=== PATIENT | male | born 1940 | race Caucasian/White ===

== ENCOUNTER → 2020-04-14 11:14 | Outpatient (CLI) | payer MEDICARE, MEDICAID, SELFPAY ==
[2020-04-15 15:39] LABS: COVID19 Sendout Not Detected (Not Detect)
== END ==
PROVIDERS: Visit Provider Physician Assistant
DX: Z01.812 Encounter for preprocedural laboratory examination (principal)
CPT/HCPCS: 87635

== ENCOUNTER → 2020-04-17 12:42 | Outpatient (CLI) | payer MEDICARE, MEDICAID, SELFPAY ==
--- NOTE | 2020-04-23 09:15 | PM.PFT.1 ---
Pulmonary Function Test Referral & Results Date Patient Seen: 04/17/20 Requesting provider: Lennox Lyons Indication: Asthma Results: The spirometry demonstrates an FVC of 1.84 L which is 60% of predicted. The FEV1 was measured at 1.20 L which is 55% of predicted. The FEV1/FVC ratio was 65 which is 90% of predicted. No bronchodilator was administered No lung volumes were performed The diffusing capacity was measured at 13.63 which is 56% of predicted. No hemoglobin value was provided, so no correction for potential anemia could be made, if appropriate. 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 Patient had difficulty with test due to pronounced coughing. Clinical correlation suggested
== END ==
PROVIDERS: Referring Provider Internal Medicine; Visit Provider Internal Medicine
DX: J45.40 Moderate persistent asthma, uncomplicated (principal)
CPT/HCPCS: 94010; 94729

== ENCOUNTER → 2020-11-05 11:41 | Outpatient (CLI) | payer MEDICARE, MEDICAID, SELFPAY ==
[2020-11-05 12:39] LABS: COVID19 -Nasal RAPID Negative (Negative)
== END ==
PROVIDERS: Visit Provider Nurse Practitioner
DX: Z20.822 Contact with and (suspected) exposure to COVID-19 (principal)
CPT/HCPCS: 87635; C9803

== ENCOUNTER → 2020-11-06 13:32 | Outpatient (CLI) | payer MEDICARE, MEDICAID, SELFPAY ==
--- NOTE | 2020-11-06 15:28 | P.PCN_ITS ---
Cardiac Stress Test Report Referral & Results Date Patient Seen: 11/06/20 Time Patient Seen: 15:28 Requesting provider: Keon Savage Indication: Atherosclerotic heart disease of [place] coronary artery Rest ECG: sinus rhythm with Q waves in II, III, aVF Procedure Note: Standard Vignesh protocol, 3:00, 4 METS Reduced exercise capacity, MARYLIN +33% Accelerated blood pressure response to exercise No chest pain or anginal symptoms. Significant dyspnea with minimal exertion. O2 sat 94% in recovery. No significant ST changes at exercise. Occasional PVCs Impression: Equivocal exercise stress test Please note: Actual ECG tracings can be found in the PACS system.
--- NOTE | 2020-11-07 17:54 | DI.NM.S_ITS ---
DATE OF SERVICE: 11/06/2020 PROCEDURE PERFORMED: Exercise treadmill stress and rest myocardial perfusion imaging study with gating to assess ejection fraction and regional wall motion. ORDERING PROVIDER: Dr. Kenneth Savage. INDICATIONS: The patient is an 80-year-old female, status post IA and CABG who now presents with exertional dyspnea. CARDIAC STRESS: The patient was able to exercise for 3 minutes on a standard Vignesh protocol suggesting moderate-severely reduced exercise capacity with an MARYLIN of +33%. She had a mildly accentuated heart rate response to exercise, achieving a maximum heart rate of 151 BPM (108% of her predicted maximum). She had a mild hypertensive blood pressure response with a resting blood pressure of 150/88, increasing to a maximum of 210/110. She had no chest discomfort or other anginal symptoms and stopped because of dyspnea. Her resting ECG shows sinus rhythm with modest inferior Q-waves, but normal ST segments. With exercise, there are no significant ST-segment shifts. She had occasional PACs, but no complex ectopy. At 2 minutes 22 seconds of exercise at a heart rate of 131 BPM, 25.7 millicuries of technetium-99m Myoview was injected and she was imaged 15 minutes later using a gated SPECT acquisition protocol. She returned the following day and was reinjected with an additional 26.6 millicuries of technetium-99m Myoview and was imaged 30 minutes later, again using a gated SPECT acquisition protocol. FINDINGS: 1. Raw data: There is fair myocardial tracer uptake. Lung/heart ratio was normal at 0.25 with a normal TID ratio of 0.82. 2. Quantitated gated SPECT: Post-stress ejection fraction is estimated at 67% with akinesis of the inferoapex with hypokinesis extending into the distal inferior wall and distal inferior septum, but no other focal wall motion abnormality. The resting images show a similar contraction pattern with an estimated ejection fraction of 58% and a resting end-diastolic volume of 114 mL. 3. Myocardial perfusion imaging: Post-stress supine images show a moderate defect in the apex and distal periapical segments with a mild perfusion defect in the distal anterior septum. There is a mild perfusion defect in the mid inferior wall that becomes a severe perfusion defect in the distal inferior wall and inferoapex. The prone images show a similar perfusion pattern. The resting images also show a similar perfusion pattern without any substantial improvement in any of the perfusion defects. IMPRESSION: 1. Abnormal myocardial perfusion study. 2. Moderate-sized, severe, fixed perfusion defect in the distal inferior wall and inferoapex, extending into the mid inferior wall, as well as a mild fixed defect in the distal anterior septum, extending into the apex and periapical segments. 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 3. Mildly reduced left ventricular systolic function with apical akinesis extending into the distal inferior wall and inferior septum. Left ventricular volumes are borderline increased at 114 mL. 4. Moderate-severely reduced exercise capacity without angina or ECG evidence of ischemia. 5. Compared to the previous perfusion study of 12/26/2017, a similar perfusion pattern is seen, although was slightly reversible on the previous study whereas it is now fixed. Her previous ejection fraction was 71% with an end- diastolic volume of 92 mL, suggesting interval mild enlargement. Eldon Louies - Jessica doc#: [id number]/job#: [id number] dd: 11/07/2020 16:39:00 dt: 11/07/2020 17:35:00 DICTATING MD/COPIES TO: Ruben Damon MD; Keon Savage MD COPIES MNE: ANGY;
== END ==
PROVIDERS: Referring Provider Internal Medicine Cardiovascular Disease; Visit Provider Internal Medicine Cardiovascular Disease
DX: R94.39 Abnormal result of other cardiovascular function study (principal); R06.09 Other forms of dyspnea; R06.02 Shortness of breath; I25.10 Atherosclerotic heart disease of native coronary artery without angina pectoris; I25.2 Old myocardial infarction; Z95.1 Presence of aortocoronary bypass graft
CPT/HCPCS: 78452; 93017; A9502

== ENCOUNTER → 2021-07-10 09:00 | Outpatient (CLI) | payer OTHER, MEDICAID, SELFPAY | PROVIDERS: PCP Physician Assistant Medical; Referring Provider Internal Medicine; Visit Provider Internal Medicine | DX: J45.40 Moderate persistent asthma, uncomplicated (principal) | CPT/HCPCS: 94060 ==

== ENCOUNTER → 2021-07-10 12:37 | Outpatient (CLI) | payer OTHER, MEDICAID, SELFPAY ==
[2021-07-10 13:36] LABS: COVID19 -Nasal RAPID Negative (Negative)
--- NOTE | 2021-07-15 09:35 | PM.PFT.1 ---
Pulmonary Function Test Referral & Results Date Patient Seen: 07/10/21 Requesting provider: Lennox Lyons Results: The spirometry demonstrates an FVC of 1.70 L which is 56% of predicted. The FEV1 was measured at 1.20 L which is 57% of predicted. The FEV1/FVC ratio was 71 which is 99% of predicted. Following the administration of bronchodilator there was no appreciable change The diffusing capacity was measured at 15.11 which is 62% of predicted. No hemoglobin value was provided, so no correction for potential anemia could be made, if appropriate. Interpretation: This study demonstrates moderate obstructive lung disease without evidence of benefit following bronchodilator. There is also a moderate reduction diffusing capacity suggesting significant disease at the capillary alveolar level Compared to PFTs performed in April 2020, current study is essentially unchanged
--- NOTE | 2021-08-06 09:22 | PM.PFT.1 ---
Pulmonary Function Test Referral & Results Date Patient Seen: 07/10/21 Requesting provider: Lennox Lyons Results: The spirometry demonstrates an FVC of 1.70 L which is 56% of predicted. The FEV1 was measured at 1.20 L which is 57% of predicted. The FEV1/FVC ratio was 71 which is 99% of predicted. Following the administration of bronchodilator there was no significant change. The diffusing capacity was measured at 15.11 which is 62% of predicted. No hemoglobin value was provided, so no correction for potential anemia could be made, if appropriate. Interpretation: This study demonstrates possible mild obstructive lung disease based on reduction FEV1 although FEV1/FVC ratio is preserved. There is no evidence of benefit following bronchodilator Diffusing capacity is also modestly reduced suggesting disease at the capillary alveolar level
== END ==
PROVIDERS: PCP Physician Assistant Medical; Referring Provider Internal Medicine Cardiovascular Disease; Visit Provider Internal Medicine
DX: Z20.822 Contact with and (suspected) exposure to COVID-19 (principal)
CPT/HCPCS: 87635; 94060; C9803

== ENCOUNTER → 2023-01-13 12:54 | Outpatient (CLI) | payer MEDICARE, MEDICAID, SELFPAY ==
--- NOTE | 2023-01-17 08:51 | PM.PFT.1 ---
Pulmonary Function Test Referral & Results Date Patient Seen: 01/13/23 Results: The spirometry demonstrates an FVC of 1.74 L which is 59% of predicted. The FEV1 was measured at 1.15 L which is 57% of predicted. The FEV1/FVC ratio was 66 which is 93% of predicted. The diffusing capacity was measured at 13.54 which is 55% of predicted. No hemoglobin value was provided, so no correction for potential anemia could be made, if appropriate. Interpretation: This study demonstrates probable moderate obstructive lung disease based on reduction FEV1 although FEV1/FVC ratio is preserved. No lung volumes were performed so difficult to know any effect any restrictive lung disease maybe having on above numbers There is also moderate reduction in diffusing capacity suggesting the presence of significant disease at the capillary alveolar level, unless patient is anemic as above Compared to PFTs performed in July 2021, current study is essentially unchanged, and on previous study lung volumes were indeed reduced suggesting the presence of restrictive lung disease which may in this situation lead to overestimation of significance of obstructive lung disease Clinical correlation suggested
== END ==
PROVIDERS: PCP Physician Assistant Medical; Referring Provider Internal Medicine; Visit Provider Internal Medicine
DX: J43.2 Centrilobular emphysema
CPT/HCPCS: 94010; 94060; 94729